=== PATIENT | male | born 1950 | race Caucasian/White ===

== ENCOUNTER 2018-02-10 20:29 | Observation (INO) | payer MEDICARE ==
--- NOTE | 2018-02-10 21:07 | ED ---
General Adult HPI - General Chief complaint: Abdominal Pain Stated complaint: kidney stones Time Seen by Provider: 02/10/18 20:39 Source: patient, RN notes reviewed, old records reviewed (Chart reviewed from [facility]) Mode of arrival: ambulatory Limitations: no limitations - History of Present Illness Initial comments: Patient is a pleasant 67-year-old male presenting to the emergency department with left-sided flank pain. Onset of symptoms was 2 days ago. Symptoms have been waxing and waning. Patient has vomited multiple times, limited oral intake. Discomfort is mild at this time secondary to pain medication prior to transfer. Patient states nausea is also mild at this time secondary to anti- emetics. Patient does have a history of similar symptoms previously associated with kidney stones. Patient was seen at [facility] and transferred here secondary to urology evaluation. Patient had abnormal CT and creatinine. - Related Data Allergies Allergy/AdvReac Type Severity Reaction Status Date / Time No Known Allergies Allergy Verified 02/10/18 20:35 Review of Systems ROS Statement: Those systems with pertinent positive or pertinent negative responses have been documented in the HPI. ROS Other: All systems not noted in ROS Statement are negative. Constitutional: Denies: fever Eyes: Denies: eye pain ENT: Denies: throat pain Respiratory: Denies: cough Cardiovascular: Denies: chest pain Endocrine: Denies: fatigue Gastrointestinal: Reports: abdominal pain, nausea, vomiting. Denies: diarrhea, constipation Genitourinary: Denies: dysuria Musculoskeletal: Denies: back pain Skin: Denies: rash Neurological: Denies: weakness Past Medical History Past Medical History: Diabetes Mellitus, Hypertension Additional Past Medical History / Comment(s): kidney stones, gout History of Any Multi-Drug Resistant Organisms: None Reported Additional Past Surgical History / Comment(s): lithotripsy Past Psychological History: No Psychological Hx Reported Smoking Status: Never smoker Past Alcohol Use History: None Reported Past Drug Use History: None Reported General Exam Limitations: no limitations General appearance: alert, in no apparent distress Head exam: Present: atraumatic Eye exam: Present: normal appearance, PERRL ENT exam: Present: normal oropharynx Neck exam: Present: normal inspection Respiratory exam: Present: normal lung sounds bilaterally Cardiovascular Exam: Present: regular rate, normal rhythm Expanded Peripheral pulses: 2+: Posterior Tibialis (R), Posterior Tibialis (L) GI/Abdominal exam: Present: soft, normal bowel sounds. Absent: distended, tenderness Extremities exam: Present: normal inspection. Absent: pedal edema, calf tenderness Back exam: Present: normal inspection Neurological exam: Present: alert Psychiatric exam: Present: normal affect, normal mood Skin exam: Present: normal color Course Vital Signs 02/10/18 20:30 Temperature 98.7 F Pulse Rate 68 Respiratory 18 Rate Blood Pressure 152/85 O2 Sat by Pulse 97 Oximetry Medical Decision Making - Medical Decision Making Case was discussed with Dr. Rivera, who will admit for Dr. Anaya. Patient updated. Disposition Clinical Impression: Ureterolithiasis, Acute renal failure (ARF) Disposition: ADMITTED IP TO THIS HOSP Condition: Serious Referrals: Ramírez Rivera DO [Primary Care Provider] - 1-2 days Decision Time: 21:07
[2018-02-10] MEDS ORDERED: ONDANSETRON 4 MG/2 ML VIAL IVP PRN (21:14)
[2018-02-10] MEDS ORDERED: MORPHINE SULFATE 4 MG/ML SYRINGE IV PRN (21:14)
[2018-02-10] MEDS ORDERED: NALOXONE 0.4 MG/ML 1 ML VIAL IV PRN (21:14)
[2018-02-10] MEDS: SODIUM CHLORIDE 0.9% 1,000 ML IV SCH (21:26)
[2018-02-10 22:39] VITALS: BMI 29.4
--- NOTE | 2018-02-11 07:46 | P.GSHP ---
History of Present Illness H&P Date: 02/11/18 Chief Complaint: Bilateral ureteral calculi and acute renal failure The patient is a 67-year-old male with a history of urolithiasis who developed pain in his left flank one or 2 days ago. The pain became increasingly severe and was associated with nausea and vomiting on 02/10. He went to the [facility] emergency room for evaluation. He was noted to have a BUN of 38 and a creatinine of 2.32. computed tomography scan of the abdomen and pelvis without IV contrast identified moderate right and mild to moderate left hydronephrosis secondary to bilateral ureteral calculi. The patient was transferred from [facility] to this hospital for further evaluation. Since he was admitted his pain has improved and he last required morphine 7 or 8 hours ago. He no longer has vomiting. He denies any fever or chills. He has noted no gross hematuria or dysuria. He says that he feels that he's been voiding less frequently recently although he says he usually only voids every 4-5 hours during the day normally. He has no nocturia. The patient has a history of urolithiasis and says that he underwent 2 unsuccessful ESWL procedures on his right kidney or ureter approximately 5 years ago. He was eventually treated with right ureteroscopy with lithotripsy. He has a history of gout and is currently on allopurinol but it's unclear whether his calculi were composed of uric acid. He has no history of recurrent urinary tract infection. - Constitutional Constitutional: Reports poor appetite, Denies chills, Denies fever - Cardiovascular Cardiovascular: Denies chest pain, Denies leg edema, Denies palpitations, Denies shortness of breath - Respiratory Respiratory: Denies dyspnea, Denies pain on inspiration, Denies wheezing - Gastrointestinal Gastrointestinal: Reports nausea, Reports vomiting, Denies abdominal pain, Denies change in bowel habits - Genitourinary (Female) Genitourinary: Denies as per HPI - Genitourinary (Male) Genitourinary: Reports as per HPI - Integumentary Integumentary: Reports lesions (chronic psoriasis) Past Medical History Past Medical History: Diabetes Mellitus, Hypertension Additional Past Medical History / Comment(s): kidney stones, gout History of Any Multi-Drug Resistant Organisms: None Reported Additional Past Surgical History / Comment(s): ureteroscopy with lithotripsy- right and two unsuccessful ESWL procedures-right Past Psychological History: No Psychological Hx Reported Smoking Status: Never smoker Past Alcohol Use History: None Reported Past Drug Use History: None Reported Medications and Allergies Home Medications and Allergies Comment(s): metformin, metoprolol and allopurinol Allergies Allergy/AdvReac Type Severity Reaction Status Date / Time No Known Allergies Allergy Verified 02/10/18 20:35 Surgical - Exam Vital Signs Temp Pulse Resp BP Pulse Ox 98.7 F 68 18 152/85 97 02/10/18 20:30 02/10/18 20:30 02/10/18 20:30 02/10/18 20:30 02/10/18 20:30 - General well developed, no distress, obese - Neck no masses, no lymphadectomy - Respiratory normal expansion, clear to percussion, clear to auscultation - Cardiovascular Rhythm: regular Abnormal Heart Sounds: no systolic murmur - Abdomen Abdomen: soft, non tender, no organomegaly - Genitourinary normal penis with no external lesions - Integumentary other (scaly, erythematous lesions on back and trunk consistent with psoriasis) Assessment and Plan (1) Acute renal failure (ARF) Narrative/Plan: The patient's acute renal failure is most likely related to bilateral hydronephrosis from his obstructive ureteral calculi. I do not know what his baseline renal function is however. Current Visit: Yes Status: Acute Code(s): N17.9 - ACUTE KIDNEY FAILURE, UNSPECIFIED SNOMED Code(s): 51455867 (2) Ureterolithiasis Narrative/Plan: The patient has bilateral ureteral obstruction secondary to what appears to be a group of impacted calculi in the mid right ureter measuring approximately 2 cm in length and at least 12-13 mm in diameter. Multiple nonobstructive right renal calculi are present including a 1.3 cm group of calculi in the lower pole of the kidney and 24 mm calculi in the upper pole of the kidney. His left ureter is partially obstructed from what appears to be at least 2 calculi impacted in the mid ureter largest of which measures 7 mm in diameter. In total length the calculi in the left ureter is approximately [address] Balderrama has treated the patient in the past and we will probably place place double-J catheters bilaterally later today for palliation of the patient's acute renal failure. Current Visit: Yes Status: Acute Code(s): N20.1 - CALCULUS OF URETER SNOMED Code(s): 61450719 (3) Benign hypertension Current Visit: Yes Status: Acute Code(s): I10 - ESSENTIAL (PRIMARY) HYPERTENSION SNOMED Code(s): 21598988 (4) Type 2 diabetes mellitus Current Visit: Yes Status: Acute Code(s): E11.9 - TYPE 2 DIABETES MELLITUS WITHOUT COMPLICATIONS SNOMED Code(s): 03452729
[2018-02-11 08:47] LABS: Basophils % (A) 0 %; Eosinophils # (A) 0.1 k/uL (0-0.7); Eosinophils % (A) 1 %; HCT 39.2 % (39.0-53.0); Lymphocytes # (A) 1.3 k/uL (1.0-4.8); Lymphocytes % (A) 13 %; MCH 31.4 pg (25.0-35.0); MCV 94.9 fL (80.0-100.0); Mean Platelet Volume 7.2; Monocytes # (A) 0.5 k/uL (0-1.0); Monocytes % (A) 5 %; Neutrophils # (A) 7.9 k/uL (1.3-7.7); Neutrophils % (A) 80 %; Platelet Count 203 k/uL (150-450); RBC 4.13 m/uL (4.30-5.90); RDW 13.1 % (11.5-15.5); WBC 9.9 k/uL (3.8-10.6)
[2018-02-11 08:50] LABS: INR 1.1 (<1.2); Prothrombin Time 10.5 sec (9.0-12.0)
[2018-02-11 08:57] LABS: Albumin 3.7 g/dL (3.5-5.0); Calcium 9.3 mg/dL (8.4-10.2); Potassium 4.4 mmol/L (3.5-5.1); Total Bilirubin 1.2 mg/dL (0.2-1.3); Total Protein 6.6 g/dL (6.3-8.2)
--- NOTE | 2018-02-11 09:37 | P.PN ---
Subjective The patient has bilateral large mid ureteral calculi. He has acute renal insufficiency secondary to this with bilateral hydronephrosis. His situation is quite complicated. I will try to place bilateral double-J catheters this afternoon relieve his renal insufficiency, dilated ureters so that future treatment can be performed. He understands he may need nephrostomy or bilateral nephrostomy tubes. We also discussed open surgery. Objective - Vital Signs Vital signs: Vital Signs Temp 98.4 F 02/11/18 07:00 Pulse 76 02/11/18 07:00 Resp 16 02/11/18 07:00 BP 120/75 02/11/18 07:00 Pulse Ox 96 02/11/18 07:00 Intake & Output 02/10/18 02/11/18 02/11/18 18:59 06:59 18:59 Output Total 600 Balance -600 Weight 95.708 kg Output: Urine 600 Other: # Voids 0 - Labs CBC & Chem 7: 02/11/18 08:16 02/11/18 08:16 Labs: Abnormal Lab Results - Last 24 Hours (Table) 02/11/18 02/11/18 Range/Units 08:16 08:16 RBC 4.13 L (4.30-5.90) m/uL Neutrophils # 7.9 H (1.3-7.7) k/uL BUN 37 H (9-20) mg/dL Creatinine 2.70 H (0.66-1.25) mg/dL Glucose 130 H (74-99) mg/dL
[2018-02-11] MEDS: SODIUM CHLORIDE 0.9% 1,000 ML IV SCH ×2 (10:48→23:23)
[2018-02-11] MEDS ORDERED: IV FLUID CONTINUATION 1,000 ML IV ONE (13:34)
[2018-02-11] MEDS ORDERED: LACTATED RINGERS 1,000 ML IV ONE (13:50)
[2018-02-11] MEDS ORDERED: ONDANSETRON 4 MG/2 ML VIAL IVP ONE (14:28)
[2018-02-11] MEDS ORDERED: DEXAMETHASONE SOD PHOSPHATE 10 MG/ML 1 ML VIAL IV ONE (14:30)
[2018-02-11] MEDS ORDERED: fentaNYL (PF) 50 MCG/ML 2 ML AMP ONE (14:45)
[2018-02-11] MEDS ORDERED: PROPOFOL 10 MG/ML 20 ML VIAL IV ONE (14:45)
[2018-02-11] MEDS ORDERED: MIDAZOLAM 2 MG/2 ML VIAL ONE (14:45)
[2018-02-11] MEDS ORDERED: LIDOCAINE 1% INJ 10MG/ML (20 ML MDV) ONE (14:45)
[2018-02-11] MEDS ORDERED: HYDROcodone/APAP 5-325MG 1 EACH TAB PO PRN (15:30)
--- NOTE | 2018-02-11 15:36 | P.OP ---
Date of Procedure: 02/11/18 Preoperative Diagnosis: Bilateral ureteral obstruction secondary to bilateral ureteral calculi, large, acute renal failure Postoperative Diagnosis: Same Procedure(s) Performed: Cystoscopy, placement of bilateral double-J catheters, 6 x 26 cm Anesthesia: TAHIR Surgeon: Wilder Balderrama Pathology: none sent Condition: stable Disposition: PACU Indications for Procedure: The patient is a 67-year-old gentleman with a history of kidney stones. He has been seen for several years. He presented to the [facility] emergency room in acute left ureteral colic. Computed tomography scan showed large volume ureteral stones on the right with chronic hydroureteronephrosis smaller volumes stones on the left with hydroureteronephrosis creatinine of 2.45. He is transferred to [facility] for further evaluation. He was admitted to the hospital. I reviewed the computed tomography scan and felt the best treatment of choice would be to relieve the renal failure possible stents and then secondarily go after the stones either shockwave lithotripsy, ureteroscopy or both. We did also discussed open surgery however the feeling is that the best treatment of choice of the endoscopic. Description of Procedure: The patient is brought to the operating suite. He was given a successful general endotracheal anesthesia. He's placed lithotomy position with sterile prep and drape. Cystoscopy Foroblique lens and 22-Burkinan sheath identifies a completely obstructing prostate with lateral lobes. The bladder guerra heavily trabeculated. The left ureteral orifice is identified and no 35 wires passed through it fortunately easily by the stones up in the renal pelvis. Over the wires and passed a 6 x 26 double-J catheter that drains a voluminous amount of bloody urine. I then do the same thing on the right side. I passed the wire to the stone the largest internal distal stone appears at least a centimeter and half if not 2 cm. With some difficulty I am able to manipulate by the stone up into the renal pelvis. I then over the wire pass a 6 x 26 double-J catheter that coils in the renal pelvis and in the bladder. Again a voluminous amount of bloody urine is drained. The bladder strain the patient awake and returned recovery in good condition. Tell procedure well. He'll be kept in the hospital overnight and make sure he doesn't have any problems. If he does well be discharged home in the morning. At a later date he will need a secondary ureteroscopy with laser lithotripsy to the stones due to the extremely large stone on the right arm a stage this.
--- NOTE | 2018-02-11 15:57 | FL ---
Fluoroscopy HISTORY: Ureteral stent placement 24 seconds fluoroscopy time supplied to the referring clinician. 1 intraoperative C-arm image docume nts the procedure. See dictated report from urology.
[2018-02-11] MEDS ORDERED: ALLOPURINOL 300 MG TAB PO SCH (21:00)
[2018-02-11] MEDS ORDERED: ASPIRIN 81 MG PO SCH (21:00)
[2018-02-11] MEDS: metFORMIN 500 MG TAB PO SCH (21:35)
[2018-02-11] MEDS: METOPROLOL TARTRATE 25 MG TAB PO SCH (21:35)
--- NOTE | 2018-02-12 06:42 | P.DS ---
Providers Date of admission: 02/10/18 21:07 Attending physician: Abdoul Rivera Primary care physician: Ramírez Rivera DO Hospital Course: The patient was admitted to the hospital 02/10/2018 with bilateral ureteral stones. I placed bilateral double-J catheters yesterday to relieve his acute renal failure which was result from the obstruction. He feels well this morning the urine is clearing. He is voiding without difficulty. He'll be discharged home. He'll be seen in the office approximately one week. We'll set up appropriate surgery to remove the stones which could include ureteroscopy with laser lithotripsy, shockwave therapy, open surgery. So all be discussed with the patient. Condition is good. Patient Condition at Discharge: Good Plan - Discharge Summary Discharge Rx Participant: No New Discharge Prescriptions: No Action metFORMIN HCL 1,000 mg PO BID Metoprolol Tartrate [Lopressor] 25 mg PO BID Cholecalciferol [Vitamin D3] 1,000 unit PO DAILY Aspirin EC [Ecotrin Low Dose] 81 mg PO HS Allopurinol [Zyloprim] 300 mg PO HS Discharge Medication List Allopurinol [Zyloprim] 300 mg PO HS 02/11/18 [History] Aspirin EC [Ecotrin Low Dose] 81 mg PO HS 02/11/18 [History] Cholecalciferol [Vitamin D3] 1,000 unit PO DAILY 02/11/18 [History] Metoprolol Tartrate [Lopressor] 25 mg PO BID 02/11/18 [History] metFORMIN HCL 1,000 mg PO BID 02/11/18 [History] Follow up Appointment(s)/Referral(s): Ramírez Rivera DO [Primary Care Provider] - 1-2 days Wilder Balderrama MD [STAFF PHYSICIAN] - 1 Week Discharge Disposition: HOME SELF-CARE
[2018-02-12 07:40] VITALS: BP 137/81; PULSE 81; RESP 20; TEMP 97.9
[2018-02-12] MEDS: metFORMIN 500 MG TAB PO SCH (08:04)
[2018-02-12] MEDS: METOPROLOL TARTRATE 25 MG TAB PO SCH (08:05)
== END 2018-02-12 09:44 | disposition home or self-care (01) ==
LOC: EC 20:29 → 4MS4W 21:07
PROVIDERS: ADMIT Urology; ATTEND Urology
DX: N17.9 Acute kidney failure, unspecified (principal); N13.2 Hydronephrosis with renal and ureteral calculous obstruction; M10.9 Gout, unspecified; I10 Essential (primary) hypertension; E11.9 Type 2 diabetes mellitus without complications; Z87.442 Personal history of urinary calculi; Z79.84 Long term (current) use of oral hypoglycemic drugs; Z79.82 Long term (current) use of aspirin; Z79.899 Other long term (current) drug therapy
CPT/HCPCS: 52332; 99285 ×2; 96361 ×3; 96374; 80053; 85025; 85610; G0378 ×3; C2625; C1769; J2250; J2270; J1100; J2405; J2001; J3010; J2704

== ENCOUNTER 2020-03-05 18:01 | Observation (INO) | payer MEDICARE ==
[2020-03-05] MEDS ORDERED: SODIUM CHLORIDE 0.9% 1,000 ML IV STA (18:41)
[2020-03-05] MEDS ORDERED: ONDANSETRON 4 MG/2 ML VIAL IVP STA (18:41)
[2020-03-05] MEDS ORDERED: KETOROLAC 30 MG/ML 1 ML VIAL IVP STA (18:41)
--- NOTE | 2020-03-05 18:47 | ED ---
Abdominal Pain HPI <Dale Bull - Last Filed: 03/05/20 20:36> - General Source: patient Mode of arrival: ambulatory Limitations: no limitations <Deborah Burroughs - Last Filed: 03/05/20 20:40> - General Chief Complaint: Abdominal Pain Stated Complaint: kidney stones Time Seen by Provider: 03/05/20 18:30 - History of Present Illness Initial Comments: Patient is a 69-year-old male presenting to the emergency Department with complaints of left-sided abdominal pain 2 days. Patient states he went to [facility] 2 days ago with a sudden onset of left flank pain, was diagnosed with a kidney stone, was given pain medication, Keflex, Zofran and discharged home and recommended follow-up with Dr. Balderrama. Patient states he is awaiting a callback from Dr. Balderrama's office. He presents today with increase in pain, states his pain medicine is not working. He denies any fever, chills, hematuria. He denies any chest pain or shortness of breath. He has no further complaints at this time. Upon arrival to the ER his vitals are stable. (Deborah Burroughs) - Related Data Home Medications Medication Instructions Recorded Confirmed Allopurinol [Zyloprim] 300 mg PO HS 02/11/18 02/11/18 Aspirin EC [Ecotrin Low Dose] 81 mg PO HS 02/11/18 02/11/18 Cholecalciferol [Vitamin D3] 1,000 unit PO DAILY 02/11/18 02/11/18 Metoprolol Tartrate [Lopressor] 25 mg PO BID 02/11/18 02/11/18 metFORMIN HCL 1,000 mg PO BID 02/11/18 02/11/18 Allergies Allergy/AdvReac Type Severity Reaction Status Date / Time No Known Allergies Allergy Verified 03/05/20 18:29 Review of Systems ROS Other: All systems not noted in ROS Statement are negative. <Dale Bull - Last Filed: 03/05/20 20:36> ROS Other: All systems not noted in ROS Statement are negative. <Deborah Burroughs - Last Filed: 03/05/20 20:40> ROS Statement: Those systems with pertinent positive or pertinent negative responses have been documented in the HPI. Past Medical History Past Medical History: Diabetes Mellitus, Hypertension Additional Past Medical History / Comment(s): kidney stones, gout History of Any Multi-Drug Resistant Organisms: None Reported Additional Past Surgical History / Comment(s): ureteroscopy with lithotripsy- right and two unsuccessful ESWL procedures-right Past Psychological History: No Psychological Hx Reported Smoking Status: Never smoker Past Alcohol Use History: None Reported Past Drug Use History: None Reported <Deborah Burroughs Jarocho - Last Filed: 03/05/20 20:40> General Exam Limitations: no limitations <Deborah Burroughs Jarocho - Last Filed: 03/05/20 20:40> - General Exam Comments Initial Comments: GENERAL: Well-appearing, well-nourished and in no acute distress. HEAD: Atraumatic, normocephalic. EYES: Pupils equal round and reactive to light, extraocular movements intact, sclera anicteric, conjunctiva are normal. ENT: TMs normal, nares patent, oropharynx clear without exudates. Moist mucous membranes. NECK: Normal range of motion, supple without lymphadenopathy or JVD. LUNGS: Breath sounds clear to auscultation bilaterally and equal. No wheezes rales or rhonchi. HEART: Regular rate and rhythm without murmurs, rubs or gallops. ABDOMEN: Tender to palpation of the left side of the abdomen. No other abdominal tenderness. Soft, normoactive bowel sounds. No guarding, no rebound. No masses appreciated. : Deferred EXTREMITIES: Normal range of motion, no pitting or edema. No clubbing or cyanosis. NEUROLOGICAL: Normal speech, normal gait. PSYCH: Normal mood, normal affect. SKIN: Warm, Dry, normal turgor, no rashes or lesions noted. (Deborah Burroughs) Course <Dale Bull - Last Filed: 03/05/20 20:36> Vital Signs 03/05/20 18:26 Temperature 98.1 F Pulse Rate 54 L Respiratory 18 Rate Blood Pressure 177/93 O2 Sat by Pulse 98 Oximetry - Reevaluation(s) Reevaluation #1: 03/05/20 20:36 PA supervision: I personally evaluate this case patient did present flank pain he has evidence of kidney stone with infectious etiology. Patient will be admitted I do agree with the assessment and plan (Dale Bull) Medical Decision Making - Lab Data Result diagrams: 03/05/20 18:55 03/05/20 18:55 <Dale Bull - Last Filed: 03/05/20 20:36> - Lab Data Result diagrams: 03/05/20 18:55 03/05/20 18:55 <Deborah Burroughs - Last Filed: 03/05/20 20:40> - Medical Decision Making Patient states he [id number] male here for a left-sided kidney stone. He was seen at [facility] 2 days ago, given pain medicine, Zofran, Keflex and was told to follow up Dr. Anaya. No callback. Patient presents today with continued pain. (Deborah Burroughs) - Lab Data Lab Results 03/05/20 03/05/20 03/05/20 Range/Units 18:55 18:55 18:55 WBC 10.9 H (3.8-10.6) k/uL RBC 4.57 (4.30-5.90) m/uL Hgb 14.0 (13.0-17.5) gm/dL Hct 44.0 (39.0-53.0) % MCV 96.5 (80.0-100.0) fL MCH 30.7 (25.0-35.0) pg MCHC 31.8 (31.0-37.0) g/dL RDW 13.0 (11.5-15.5) % Plt Count 220 (150-450) k/uL Neutrophils % 87 % Lymphocytes % 7 % Monocytes % 4 % Eosinophils % 1 % Basophils % 0 % Neutrophils # 9.5 H (1.3-7.7) k/uL Lymphocytes # 0.8 L (1.0-4.8) k/uL Monocytes # 0.4 (0-1.0) k/uL Eosinophils # 0.1 (0-0.7) k/uL Basophils # 0.0 (0-0.2) k/uL Sodium 136 L (137-145) mmol/L Potassium 4.7 (3.5-5.1) mmol/L Chloride 101 (98-107) mmol/L Carbon Dioxide 22 (22-30) mmol/L Anion Gap 13 mmol/L BUN 33 H (9-20) mg/dL Creatinine 2.28 H (0.66-1.25) mg/dL Est GFR (CKD-EPI)AfAm 33 (>60 ml/min/1.73 sqM) Est GFR (CKD-EPI)NonAf 28 (>60 ml/min/1.73 sqM) Glucose 180 H (74-99) mg/dL Calcium 9.6 (8.4-10.2) mg/dL Total Bilirubin 1.0 (0.2-1.3) mg/dL AST 24 (17-59) U/L ALT 14 (4-49) U/L Alkaline Phosphatase 53 (38-126) U/L Total Protein 8.2 (6.3-8.2) g/dL Albumin 4.6 (3.5-5.0) g/dL Urine Color Yellow Urine Appearance Cloudy (Clear) Urine pH 5.0 (5.0-8.0) Ur Specific [place] 1.017 (1.001-1.035) Urine Protein Trace H (Negative) Urine Glucose (UA) Negative (Negative) Urine Ketones 1+ H (Negative) Urine Blood Moderate H (Negative) Urine Nitrite Negative (Negative) Urine Bilirubin Negative (Negative) Urine Urobilinogen <2.0 (<2.0) mg/dL Ur Leukocyte Esterase Moderate H (Negative) Urine RBC 141 H (0-5) /hpf Urine WBC 30 H (0-5) /hpf Ur Squamous Epith Cells 1 (0-4) /hpf Urine Bacteria Rare H (None) /hpf Urine Mucus Rare H (None) /hpf Disposition <Dale Bull - Last Filed: 03/05/20 20:36> Decision Date: 03/05/20 Decision Time: 20:40 <Deborah Burroughs - Last Filed: 03/05/20 20:40> Clinical Impression: Acute kidney injury, Left ureteral stone Disposition: ADMITTED IP TO THIS HOSP Condition: Stable Referrals: Silvia Durbin DO [Primary Care Provider] - 1-2 days
[2020-03-05 19:12] LABS: Basophils % (A) 0 %; Eosinophils # (A) 0.1 k/uL (0-0.7); Eosinophils % (A) 1 %; Lymphocytes # (A) 0.8 k/uL (1.0-4.8); Lymphocytes % (A) 7 %; MCH 30.7 pg (25.0-35.0); MCHC 31.8 g/dL (31.0-37.0); MCV 96.5 fL (80.0-100.0); Mean Platelet Volume 7.4; Monocytes # (A) 0.4 k/uL (0-1.0); Monocytes % (A) 4 %; Neutrophils # (A) 9.5 k/uL (1.3-7.7); Neutrophils % (A) 87 %; Platelet Count 220 k/uL (150-450); RBC 4.57 m/uL (4.30-5.90); WBC 10.9 k/uL (3.8-10.6)
[2020-03-05 19:19] LABS: Albumin 4.6 g/dL (3.5-5.0); Calcium 9.6 mg/dL (8.4-10.2); Potassium 4.7 mmol/L (3.5-5.1); Total Protein 8.2 g/dL (6.3-8.2)
[2020-03-05 19:30] LABS: Appearance,Urine Cloudy (Clear); Bacteria,Urine Rare /hpf; Bilirubin,Urine Negative (Negative); Blood,Urine Moderate (Negative); Color,Urine Yellow; Glucose,Urine (UA) Negative (Negative); Ketones,Urine 1+ (Negative); Leukocyte Esterase,Urine Moderate (Negative); Mucus,Urine Rare /hpf; Nitrite,Urine Negative (Negative); Protein,Urine Trace (Negative); RBC,Urine 141 /hpf (0-5); Specific Gravity,Urine 1.017 (1.001-1.035); Squamous Epithelial Cell,Urine 1 /hpf (0-4); Urobilinogen,Urine <2.0 mg/dL (<2.0); WBC,Urine 30 /hpf (0-5)
--- NOTE | 2020-03-05 20:10 | XR ---
EXAMINATION TYPE: XR KUB DATE OF EXAM: 03/05/2020 COMPARISON: 11/13/2010 HISTORY: Lithotripsy one week ago. Pain. TECHNIQUE: 2 views upright FINDINGS: There is no sign of intestinal obstruction or pneumoperitoneum. Fecal pattern is normal. Th ere is some calcifications over the lower pole right kidney. I see no calculi over the left kidney. T here is no evidence of a mass. Fecal pattern is normal. Lung bases are clear. IMPRESSION: Right renal calculi unchanged. Nonacute abdomen.
[2020-03-05] MEDS ORDERED: KETOROLAC 30 MG/ML 1 ML VIAL IVP PRN (20:36)
[2020-03-05] MEDS ORDERED: NALOXONE 0.4 MG/ML 1 ML VIAL IV PRN (20:36)
[2020-03-05] MEDS ORDERED: IBUPROFEN 400 MG TAB PO PRN (20:36)
[2020-03-05] MEDS ORDERED: ONDANSETRON 4 MG/2 ML VIAL IVP PRN (20:36)
[2020-03-05] MEDS ORDERED: traMADol 50 MG TAB PO PRN (22:58)
[2020-03-05] MEDS: SODIUM CHLORIDE 0.9% 1,000 ML IV SCH (23:46)
[2020-03-06] MEDS: MORPHINE SULFATE 4 MG/ML SYRINGE IV PRN ×3 (03:12→17:48)
[2020-03-06 08:17] LABS: Potassium 5.5 mmol/L (3.5-5.1)
[2020-03-06] MEDS: metFORMIN 500 MG TAB PO SCH ×2 (09:18→17:42)
[2020-03-06] MEDS: METOPROLOL TARTRATE 25 MG TAB PO SCH ×2 (09:22→20:34)
[2020-03-06] MEDS: SODIUM CHLORIDE 0.9% 1,000 ML IV SCH (11:03)
[2020-03-06 11:36] LABS: Glucose,Whole Blood 114 mg/dL (75-99)
--- NOTE | 2020-03-06 13:23 | P.GSHP ---
History of Present Illness H&P Date: 03/06/20 Chief Complaint: Left ureteral calculi Mr Sosa is a 69-year-old male with left sided flank pain. He was recently presented to [facility] with left flank pain, He underwent a CT which showed a 5 mm left ureteral stone. He was discharged home from the ED, he indicated his pain has gotten worse and presented to the ED with flank pain. Lab work in the ED showed creat of 2.2. He indicated his pain is associated with nausea/vomiting. denies any fever/chills. denies any dysuria. He indicated this am his pain has resolved. He has hx of recurrent stones, he indicated he passed stone spontaneously in the past. His creat improved to 1.7 with hydration - Constitutional Constitutional: Denies chills, Denies fever - Cardiovascular Cardiovascular: Denies chest pain, Denies dyspnea on exertion - Respiratory Respiratory: Denies cough, Denies cough with sputum, Denies dyspnea - Gastrointestinal Gastrointestinal: Reports abdominal pain, Reports nausea, Reports vomiting - Genitourinary (Female) Genitourinary: Reports flank pain, Reports hematuria, Reports kidney stones, Denies dysuria - Genitourinary (Male) Genitourinary: Reports flank pain, Reports hematuria, Reports kidney stones, Denies incontinence, Denies urinary retention - Musculoskeletal Musculoskeletal: Denies myalgias Past Medical History Past Medical History: Diabetes Mellitus, Hypertension Additional Past Medical History / Comment(s): kidney stones, gout History of Any Multi-Drug Resistant Organisms: None Reported Additional Past Surgical History / Comment(s): ureteroscopy with lithotripsy- right and two unsuccessful ESWL procedures-right Past Psychological History: No Psychological Hx Reported Smoking Status: Never smoker Past Alcohol Use History: None Reported Past Drug Use History: None Reported Medications and Allergies Home Medications Medication Instructions Recorded Confirmed Type Allopurinol [Zyloprim] 300 mg PO HS 02/11/18 03/05/20 History Aspirin EC [Ecotrin Low Dose] 81 mg PO HS 02/11/18 03/05/20 History Cholecalciferol [Vitamin D3] 2,000 unit PO Q48H 02/11/18 03/05/20 History Metoprolol Tartrate [Lopressor] 25 mg PO BID 02/11/18 03/05/20 History RX: metFORMIN HCL 1,000 mg PO BID 02/11/18 03/05/20 History Co Q-10 (Unknown Strength) 1 tab PO HS 03/05/20 03/05/20 History RX: Tamsulosin [Flomax] 0.4 mg PO DAILY #30 cap 03/06/20 Rx Allergies Allergy/AdvReac Type Severity Reaction Status Date / Time No Known Allergies Allergy Verified 03/05/20 21:13 Surgical - Exam Vital Signs Temp Pulse Resp BP Pulse Ox 98.1 F 54 L 18 177/93 98 03/05/20 18:26 03/05/20 18:26 03/05/20 18:26 03/05/20 18:26 03/05/20 18:26 - General well developed, well nourished, no distress, no pain - Eyes PERRL, normal ocular movement - Respiratory normal expansion, normal respiratory effort - Abdomen Abdomen: soft, non tender - Psychiatric oriented to time, oriented to person, oriented to place, speech is normal Results - Labs 03/05/20 18:55 03/06/20 07:01 Abnormal Lab Results - Last 24 Hours (Table) 03/05/20 03/05/20 03/05/20 Range/Units 18:55 18:55 18:55 WBC 10.9 H (3.8-10.6) k/uL Neutrophils # 9.5 H (1.3-7.7) k/uL Lymphocytes # 0.8 L (1.0-4.8) k/uL Sodium 136 L (137-145) mmol/L Potassium (3.5-5.1) mmol/L Chloride (98-107) mmol/L BUN 33 H (9-20) mg/dL Creatinine 2.28 H (0.66-1.25) mg/dL Glucose 180 H (74-99) mg/dL POC Glucose (mg/dL) (75-99) mg/dL Urine Protein Trace H (Negative) Urine Ketones 1+ H (Negative) Urine Blood Moderate H (Negative) Ur Leukocyte Esterase Moderate H (Negative) Urine RBC 141 H (0-5) /hpf Urine WBC 30 H (0-5) /hpf Urine Bacteria Rare H (None) /hpf Urine Mucus Rare H (None) /hpf 03/06/20 03/06/20 Range/Units 07:01 11:35 WBC (3.8-10.6) k/uL Neutrophils # (1.3-7.7) k/uL Lymphocytes # (1.0-4.8) k/uL Sodium (137-145) mmol/L Potassium 5.5 H (3.5-5.1) mmol/L Chloride 108 H (98-107) mmol/L BUN 30 H (9-20) mg/dL Creatinine 1.71 H (0.66-1.25) mg/dL Glucose 108 H (74-99) mg/dL POC Glucose (mg/dL) 114 H (75-99) mg/dL Urine Protein (Negative) Urine Ketones (Negative) Urine Blood (Negative) Ur Leukocyte Esterase (Negative) Urine RBC (0-5) /hpf Urine WBC (0-5) /hpf Urine Bacteria (None) /hpf Urine Mucus (None) /hpf Microbiology - Last 24 Hours (Table) 03/06/20 02:55 Urine Culture - Preliminary Urine,Voided 03/05/20 18:55 Urine Culture - Preliminary Urine,Voided Diabetes panel 03/05/20 03/06/20 Range/Units 18:55 07:01 Sodium 136 L 138 (137-145) mmol/L Potassium 4.7 5.5 H (3.5-5.1) mmol/L Chloride 101 108 H (98-107) mmol/L Carbon Dioxide 22 25 (22-30) mmol/L BUN 33 H 30 H (9-20) mg/dL Creatinine 2.28 H 1.71 H (0.66-1.25) mg/dL Glucose 180 H 108 H (74-99) mg/dL Calcium 9.6 9.0 (8.4-10.2) mg/dL AST 24 (17-59) U/L ALT 14 (4-49) U/L Alkaline Phosphatase 53 (38-126) U/L Total Protein 8.2 (6.3-8.2) g/dL Albumin 4.6 (3.5-5.0) g/dL Calcium panel 03/05/20 03/06/20 Range/Units 18:55 07:01 Calcium 9.6 9.0 (8.4-10.2) mg/dL Albumin 4.6 (3.5-5.0) g/dL Pituitary panel 03/05/20 03/06/20 Range/Units 18:55 07:01 Sodium 136 L 138 (137-145) mmol/L Potassium 4.7 5.5 H (3.5-5.1) mmol/L Chloride 101 108 H (98-107) mmol/L Carbon Dioxide 22 25 (22-30) mmol/L BUN 33 H 30 H (9-20) mg/dL Creatinine 2.28 H 1.71 H (0.66-1.25) mg/dL Glucose 180 H 108 H (74-99) mg/dL Calcium 9.6 9.0 (8.4-10.2) mg/dL Adrenal panel 03/05/20 03/06/20 Range/Units 18:55 07:01 Sodium 136 L 138 (137-145) mmol/L Potassium 4.7 5.5 H (3.5-5.1) mmol/L Chloride 101 108 H (98-107) mmol/L Carbon Dioxide 22 25 (22-30) mmol/L BUN 33 H 30 H (9-20) mg/dL Creatinine 2.28 H 1.71 H (0.66-1.25) mg/dL Glucose 180 H 108 H (74-99) mg/dL Calcium 9.6 9.0 (8.4-10.2) mg/dL Total Bilirubin 1.0 (0.2-1.3) mg/dL AST 24 (17-59) U/L ALT 14 (4-49) U/L Alkaline Phosphatase 53 (38-126) U/L Total Protein 8.2 (6.3-8.2) g/dL Albumin 4.6 (3.5-5.0) g/dL Assessment and Plan Assessment: 69 yo male with 5 mm left sided ureteral stone. Admitted to hospital with ANDRES and creat elevation to 2.2. Creat trending down to 1.7 with hydration. He is asymptomatic this am. Hx of oxalate stone is the past, he indicated that he passed them spontaneously Plan: -Trial of diet, if tolerating diet discharge home later today, can f/u with Dr Balderrama in 1 weeks with KUB prior to f/u. If pain reoccurs will keep NPO past MN and plan on going to OR tomorrow for pimary ureteroscopy
[2020-03-06] MEDS: SENNOSIDES 8.6 MG TAB PO SCH (15:49)
[2020-03-06 17:12] LABS: Glucose,Whole Blood 163 mg/dL (75-99)
[2020-03-06 20:45] LABS: Glucose,Whole Blood 121 mg/dL (75-99)
[2020-03-06] MEDS ORDERED: ASPIRIN 81 MG PO SCH (21:00)
[2020-03-06] MEDS ORDERED: ALLOPURINOL 300 MG TAB PO SCH (21:00)
[2020-03-07 05:20] VITALS: BP 153/81; PULSE 72; RESP 16; TEMP 98.2
[2020-03-07] MEDS: SODIUM CHLORIDE 0.9% 1,000 ML IV SCH (06:05)
[2020-03-07 07:06] LABS: Glucose,Whole Blood 132 mg/dL (75-99)
[2020-03-07] MEDS: SENNOSIDES 8.6 MG TAB PO SCH (08:58)
[2020-03-07] MEDS: METOPROLOL TARTRATE 25 MG TAB PO SCH (08:58)
[2020-03-07] MEDS: metFORMIN 500 MG TAB PO SCH (08:58)
--- NOTE | 2020-03-07 09:33 | P.DS ---
Providers Date of admission: 03/05/20 20:36 Attending physician: Low Paulino MD Primary care physician: Silvia Durbin DO Hospital Course: Mr lacy is 69 yo male admitted to the hospital with 5mm left ureteral stone and ANDRES. His creat was elevated to 2.2. Denies. On admission his Creat improved to 1.7. He contiued to have intractable pain on 03/06, plan was to take patient to the OR on 03/07, but he passed his stone in the am. His stone was sent for chemical analysis. He was discharged home on 03/07. At time of discharge his pain was well controlled and he denies any nausea or vomiting Patient Condition at Discharge: Stable Plan - Discharge Summary Discharge Rx Participant: No New Discharge Prescriptions: New Tamsulosin [Flomax] 0.4 mg PO DAILY #30 cap No Action metFORMIN HCL 1,000 mg PO BID Metoprolol Tartrate [Lopressor] 25 mg PO BID Cholecalciferol [Vitamin D3] 2,000 unit PO Q48H Aspirin EC [Ecotrin Low Dose] 81 mg PO HS Allopurinol [Zyloprim] 300 mg PO HS Co Q-10 (Unknown Strength) 1 tab PO HS Discharge Medication List Allopurinol [Zyloprim] 300 mg PO HS 02/11/18 [History] Aspirin EC [Ecotrin Low Dose] 81 mg PO HS 02/11/18 [History] Cholecalciferol [Vitamin D3] 2,000 unit PO Q48H 02/11/18 [History] Metoprolol Tartrate [Lopressor] 25 mg PO BID 02/11/18 [History] metFORMIN HCL 1,000 mg PO BID 02/11/18 [History] Co Q-10 (Unknown Strength) 1 tab PO HS 03/05/20 [History] Tamsulosin [Flomax] 0.4 mg PO DAILY #30 cap 03/06/20 [Rx] Follow up Appointment(s)/Referral(s): Silvia Durbin DO [Primary Care Provider] - 1-2 days Wilder Balderrama MD [STAFF PHYSICIAN] - 1 Week Patient Instructions/Handouts: Hydrocodone/Acetaminophen (By mouth), Tamsulosin (By mouth), Ureteral Stones (DC) Activity/Diet/Wound Care/Special Instructions: diet as tolerated activity limited until seen by Dr. Bruner Disposition: HOME SELF-CARE
== END 2020-03-07 11:55 | disposition home or self-care (01) ==
LOC: EC 18:01 → 5NMEDONC 20:36
PROVIDERS: ADMIT Urology; ATTEND Urology
DX: N17.9 Acute kidney failure, unspecified (principal); N20.1 Calculus of ureter; E11.9 Type 2 diabetes mellitus without complications; I10 Essential (primary) hypertension; M10.9 Gout, unspecified; Z79.84 Long term (current) use of oral hypoglycemic drugs; Z79.82 Long term (current) use of aspirin; Z79.899 Other long term (current) drug therapy
CPT/HCPCS: 96376; 96361 ×3; 96365; 96366; 96375 ×2; 99285; 36415; 80053; 80048; 85025; 81001; 82365; 87086 ×2; 74018; G0378 ×3; U0003; J2270; J2405; J0696 ×2; J1885

== ENCOUNTER 2023-07-29 09:30 | Emergency (ER) | payer MEDICARE ==
[2023-07-29] MEDS ORDERED: KETOROLAC 15 MG/ML 1 ML VIAL IVP STA (09:45)
[2023-07-29] MEDS ORDERED: SODIUM CHLORIDE 0.9% 1,000 ML IV STA (09:45)
[2023-07-29] MEDS ORDERED: ONDANSETRON 4 MG/2 ML VIAL IVP STA (09:45)
[2023-07-29] MEDS ORDERED: HYDROmorphone 0.5 MG/0.5 ML SYRINGE IVP STA (09:46)
--- NOTE | 2023-07-29 09:49 | ED ---
General Adult HPI - General Chief complaint: Abdominal Pain Stated complaint: kidney stone Time Seen by Provider: 07/29/23 09:35 Source: patient, RN notes reviewed, old records reviewed Mode of arrival: ambulatory Limitations: no limitations - History of Present Illness Initial comments: This is a 72-year-old male who presents emergency Department with a past medical history significant for kidney stones patient patient comes in today stating that he thinks his medications down because she's got left-sided flank pain that goes into his CVA area of his back. Patient states started yesterday and has progressed today. Patient states this morning was significant. Patient denies any fever chills per patient denies any hematuria dysuria or urinary frequency. Patient denies any anterior abdominal pain. Patient denies any chest pain or difficulty breathing. - Related Data Home Medications Medication Instructions Recorded Confirmed Aspirin EC [Ecotrin Low Dose] 81 mg PO HS 02/11/18 03/05/20 Cholecalciferol [Vitamin D3] 2,000 unit PO Q48H 02/11/18 03/05/20 Metoprolol Tartrate [Lopressor] 25 mg PO BID 02/11/18 03/05/20 allopurinoL [Zyloprim] 300 mg PO HS 02/11/18 03/05/20 metFORMIN HCL [Glucophage] 1,000 mg PO BID 02/11/18 03/05/20 Co Q-10 (Unknown Strength) 1 tab PO HS 03/05/20 03/05/20 Previous Rx's Medication Instructions Recorded Tamsulosin [Flomax] 0.4 mg PO DAILY #30 cap 03/06/20 Ketorolac [Toradol] 10 mg PO Q6HR #15 tab 07/29/23 Ondansetron [Zofran] 4 mg PO Q8HR PRN #10 tab 07/29/23 Tamsulosin [Flomax] 0.4 mg PO DAILY #10 cap 07/29/23 Allergies Allergy/AdvReac Type Severity Reaction Status Date / Time No Known Allergies Allergy Verified 07/29/23 09:37 Review of Systems ROS Statement: Those systems with pertinent positive or pertinent negative responses have been documented in the HPI. ROS Other: All systems not noted in ROS Statement are negative. Past Medical History Past Medical History: Diabetes Mellitus, Hypertension Additional Past Medical History / Comment(s): kidney stones, gout History of Any Multi-Drug Resistant Organisms: None Reported Additional Past Surgical History / Comment(s): ureteroscopy with lithotripsy- right and two unsuccessful ESWL procedures-right Past Psychological History: No Psychological Hx Reported Smoking Status: Never smoker Past Alcohol Use History: None Reported Past Drug Use History: None Reported General Exam - General Exam Comments Initial Comments: GENERAL: Patient is well-developed and well-nourished. Patient is nontoxic and well- hydrated and is in mild distress. ENT: Neck is soft and supple. No significant lymphadenopathy is noted. Oropharynx is clear. Moist mucous membranes. Neck has full range of motion without eliciting any pain. EYES: The sclera were anicteric and conjunctiva were pink and moist. Extraocular movements were intact and pupils were equal round and reactive to light. Eyelids were unremarkable. PULMONARY: Unlabored respirations. Good breath sounds bilaterally. No audible rales rhonchi or wheezing was noted. CARDIOVASCULAR: There is a regular rate and rhythm without any murmurs gallops or rubs. ABDOMEN: Soft and nontender with normal bowel sounds. SKIN: Skin is clear with no lesions or rashes and otherwise unremarkable. NEUROLOGIC: Patient is alert and oriented x3. Cranial nerves II through XII are grossly intact. Motor and sensory are also intact. Normal speech, volume and content. Symmetrical smile. MUSCULOSKELETAL: Normal extremities with adequate strength and full range of motion. No CVA tenderness LYMPHATICS: No significant lymphadenopathy is noted PSYCHIATRIC: Normal psychiatric evaluation. Limitations: no limitations Course Vital Signs 07/29/23 07/29/23 09:35 10:08 Temperature 98.1 F Pulse Rate 65 72 Respiratory 20 18 Rate Blood Pressure 164/90 157/88 O2 Sat by Pulse 99 98 Oximetry Medical Decision Making - Medical Decision Making Was pt. sent in by a medical professional or institution (, PA, STORAGE BRINE WORKER, urgent care, hospital, or alf...) When possible be specific @ -No Did you speak to anyone other than the patient for history (EMS, parent, family, police, friend...)? What history was obtained from this source @ -No Did you review nursing and triage notes (agree or disagree)? Why? @ -I reviewed and agree with nursing and triage notes Were old charts reviewed (outside hosp., previous admission, EMS record, old EKG, old radiological studies, urgent care reports/EKG's, alf records)? Report findings @ -I reviewed prior charts of her labwork on this patient Differential Diagnosis (chest pain, altered mental status, abdominal pain women, abdominal pain men, vaginal bleeding, weakness, fever, dyspnea, syncope, headache, dizziness, GI bleed, back pain, seizure, CVA, palpatations, mental health, musculoskeletal)? @ -Differential Abdominal Pain Men: Appendicitis, cholecystitis, diverticulosis, ischemic bowel, pancreatitis, hepatitis, UTI, gastroenteritis, AAA, incarcerated hernia, bowel obstruction, constipation, inflammatory bowel, hepatitis, peptic ulcer disease, splenic infarction, perforated viscus, testicular torsion, this is not meant to be an all-inclusive list EKG interpreted by me (3pts min.). @ -As above X-rays interpreted by me (1pt min.). @ -None done CT interpreted by me (1pt min.). @ -Computed tomography scan of the abdomen and pelvis shows a 2 mm stone at the UV junction with mild hydronephrosis U/S interpreted by me (1pt. min.). @ -None done What testing was considered but not performed or refused? (CT, X-rays, U/S, labs)? Why? @ -None What meds were considered but not given or refused? Why? @ -None Did you discuss the management of the patient with other professionals (katiuska cook i.e. , PA, STORAGE BRINE WORKER, lab, RT, psych nurse, social psychologist, director of medical education, teacher, surveillance dual rate officer, oil field caser)? Give summary @ -No Was smoking cessation discussed for >3mins.? @ -No Was critical care preformed (if so, how long)? @ -No Were there social determinants of health that impacted care today? How? (Homelessness, low income, unemployed, alcoholism, drug addiction, transpor tation, low edu. Level, literacy, decrease access to med. care, senior living, rehab)? @ -No Was there de-escalation of care discussed even if they declined (Discuss DNR or withdrawal of care, Hospice)? DNR status @ -No What co-morbidities impacted this encounter? (DM, HTN, Smoking, COPD, CAD, Cancer, CVA, ARF, Chemo, Hep., AIDS, mental health diagnosis, sleep apnea, morbid obesity)? @ -None Was patient admitted / discharged? Hospital course, mention meds given and route, prescriptions, significant lab abnormalities, going to OR and other pertinent info. @ -2 was given pain medications and when I went back into reevaluate the patient and inform them of his kidney stone patient had no pain. Undiagnosed new problem with uncertain prognosis? @ -No Drug Therapy requiring intensive monitoring for toxicity (Heparin, Nitro, Insulin, Cardizem)? @ -No Were any procedures done? @ -No Diagnosis/symptom? @ -Kidney stone Acute, or Chronic, or Acute on Chronic? @ -Acute Uncomplicated (without systemic symptoms) or Complicated (systemic symptoms)? @ -Complicated Side effects of treatment? @ -No Exacerbation, Progression, or Severe Exacerbation? @ -No Poses a threat to life or bodily function? How? (Chest pain, [place], [place], pneumonia, PE, COPD, DKA, ARF, appy, cholecystitis, CVA, Diverticulitis, Homicidal, Suicidal, threat to staff... and all critical care pts) @ -No - Lab Data Result diagrams: 07/29/23 10:03 07/29/23 10:03 Lab Results 07/29/23 07/29/23 07/29/23 Range/Units 10:03 10:03 10:03 WBC 13.1 H (3.8-10.6) k/uL RBC 4.52 (4.30-5.90) m/uL Hgb 14.7 (13.0-17.5) gm/dL Hct 44.1 (39.0-53.0) % MCV 97.5 (80.0-100.0) fL MCH 32.5 (25.0-35.0) pg MCHC 33.3 (31.0-37.0) g/dL RDW 12.7 (11.5-15.5) % Plt Count 200 (150-450) k/uL MPV 7.9 Neutrophils % 89 % Lymphocytes % 6 % Monocytes % 4 % Eosinophils % 0 % Basophils % 0 % Neutrophils # 11.6 H (1.3-7.7) k/uL Lymphocytes # 0.8 L (1.0-4.8) k/uL Monocytes # 0.5 (0-1.0) k/uL Eosinophils # 0.0 (0-0.7) k/uL Basophils # 0.0 (0-0.2) k/uL Sodium 139 (137-145) mmol/L Potassium 4.9 (3.5-5.1) mmol/L Chloride 103 (98-107) mmol/L Carbon Dioxide 20 L (22-30) mmol/L Anion Gap 16 mmol/L BUN 21 H (9-20) mg/dL Creatinine 1.33 H (0.66-1.25) mg/dL Est GFR (CKD-EPI)AfAm 62 (>60 ml/min/1.73 sqM) Est GFR (CKD-EPI)NonAf 54 (>60 ml/min/1.73 sqM) Glucose 177 H (74-99) mg/dL Calcium 10.0 (8.4-10.2) mg/dL Total Bilirubin 1.2 (0.2-1.3) mg/dL AST 28 (17-59) U/L ALT 19 (4-49) U/L Alkaline Phosphatase 52 (38-126) U/L Total Protein 8.1 (6.3-8.2) g/dL Albumin 4.5 (3.5-5.0) g/dL Urine Color Yellow Urine Appearance Clear (Clear) Urine pH 5.0 (5.0-8.0) Ur Specific [place] 1.024 (1.001-1.035) Urine Protein 1+ H (Negative) Urine Glucose (UA) Negative (Negative) Urine Ketones Negative (Negative) Urine Blood Small H (Negative) Urine Nitrite Negative (Negative) Urine Bilirubin Negative (Negative) Urine Urobilinogen <2.0 (<2.0) mg/dL Ur Leukocyte Esterase Negative (Negative) Urine RBC 3 (0-5) /hpf Urine WBC 2 (0-5) /hpf Ur Squamous Epith Cells <1 (0-4) /hpf Urine Mucus Rare H (None) /hpf Disposition Clinical Impression: Kidney stone Disposition: HOME SELF-CARE Condition: Good Instructions (If sedation given, give patient instructions): Kidney Stones (ED) Prescriptions: Tamsulosin [Flomax] 0.4 mg PO DAILY #10 cap Ketorolac [Toradol] 10 mg PO Q6HR #15 tab Ondansetron [Zofran] 4 mg PO Q8HR PRN #10 tab PRN Reason: Nausea And Vomiting Is patient prescribed a controlled substance at d/c from ED?: No Referrals: Dale Montenegro MD [Primary Care Provider] - 1-2 days Time of Disposition: 11:28
[2023-07-29 09:57] VITALS: TEMP 98.1
[2023-07-29 10:42] VITALS: RESP 18
[2023-07-29 10:54] LABS: Appearance,Urine Clear (Clear); Bilirubin,Urine Negative (Negative); Blood,Urine Small (Negative); Color,Urine Yellow; Glucose,Urine (UA) Negative (Negative); Ketones,Urine Negative (Negative); Leukocyte Esterase,Urine Negative (Negative); Mucus,Urine Rare /hpf; Nitrite,Urine Negative (Negative); Protein,Urine 1+ (Negative); RBC,Urine 3 /hpf (0-5); Specific Gravity,Urine 1.024 (1.001-1.035); Squamous Epithelial Cell,Urine <1 /hpf (0-4); Urobilinogen,Urine <2.0 mg/dL (<2.0); WBC,Urine 2 /hpf (0-5)
[2023-07-29 11:02] LABS: Basophils % (A) 0 %; Eosinophils % (A) 0 %; HCT 44.1 % (39.0-53.0); HGB 14.7 gm/dL (13.0-17.5); Lymphocytes # (A) 0.8 k/uL (1.0-4.8); Lymphocytes % (A) 6 %; MCH 32.5 pg (25.0-35.0); MCHC 33.3 g/dL (31.0-37.0); MCV 97.5 fL (80.0-100.0); Mean Platelet Volume 7.9; Monocytes # (A) 0.5 k/uL (0-1.0); Monocytes % (A) 4 %; Neutrophils # (A) 11.6 k/uL (1.3-7.7); Neutrophils % (A) 89 %; Platelet Count 200 k/uL (150-450); RBC 4.52 m/uL (4.30-5.90); RDW 12.7 % (11.5-15.5); WBC 13.1 k/uL (3.8-10.6)
--- NOTE | 2023-07-29 11:06 | CT ---
EXAMINATION TYPE: CT abdomen pelvis wo con CT DLP: 759.5 mGycm, Automated exposure control for dose reduction was used. DATE OF EXAM: 07/29/2023 10:35 AM COMPARISON: CT abdomen pelvis most recent from 02/10/2018 CLINICAL INDICATION:Male, 72 years old with history of abdominal pain; left flank pain TECHNIQUE: Axial CT of the ;CT abdomen pelvis wo con;Sagittal and coronal reformats were created on a separate workstation. Contrast used: mL of , (none if empty) Oral contrast used: without Oral Contrast (none if empty) FINDINGS: LOWER CHEST: Atherosclerosis of the coronary arteries. ABDOMEN LIVER: Unremarkable GALLBLADDER AND BILE DUCTS: Unremarkable. PANCREAS: Unremarkable. SPLEEN: Unremarkable. ADRENAL GLANDS: Unremarkable. KIDNEYS AND URETERS: Mild to moderate left hydronephrosis secondary obstructing 2 mm calculus at the ureteropelvic junction. Additional nonobstructing calculi bilaterally ro measuring up to 8 mm on the left and 16 mm in the right. There is adjacent fat stranding changes on the left kidney. Evidence of hydronephrosis or renal calculus. The ureters are unremarkable. PELVIS BLADDER: Unremarkable REPRODUCTIVE: Prostate is enlarged in size measuring 5.3 cm in transverse dimension. ABDOMEN & PELVIS STOMACH AND BOWEL: No evidence of bowel obstruction. PERITONEUM/RETROPERITONEUM: No evidence of pneumoperitoneum or free fluid. VASCULATURE: Moderate atherosclerotic calcifications are present throughout the abdominal aorta and i ts branches. No evidence of aortic aneurysm. MUSCULOSKELETAL: No acute osseous abnormalities. Moderate disc degeneration changes are present throu ghout the thoracolumbar spine. Pseudoarthrosis of the spinous processes. Scattered facet joint arthro lauren. LYMPH NODES: No gross evidence for lymphadenopathy. SOFT TISSUE/ABDOMINAL WALL: Fat-containing right inguinal hernia. Fat-containing umbilical hernia. IMPRESSION: 1. Mild to moderate left hydronephrosis secondary obstructing 2 mm calculus at the ureteropelvic sergio ction. Additional Nonobstructing bilateral renal calculi. 2. Prostatomegaly, correlate serum PSA. 3. 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 4. Severe coronary artery atherosclerosis.
[2023-07-29 11:16] LABS: ALT 19 U/L (4-49); AST 28 U/L (17-59); African American GFR (CKD) 62 (>60 ml/min/1.73 sqM); Albumin 4.5 g/dL (3.5-5.0); Alkaline Phosphatase 52 U/L (38-126); Anion Gap 16 mmol/L; Blood Urea Nitrogen 21 mg/dL (9-20); Carbon Dioxide 20 mmol/L (22-30); Chloride 103 mmol/L (98-107); Glucose 177 mg/dL (74-99); Non-African American GFR(CKD) 54 (>60 ml/min/1.73 sqM); Potassium 4.9 mmol/L (3.5-5.1); Sodium 139 mmol/L (137-145); Total Bilirubin 1.2 mg/dL (0.2-1.3); Total Protein 8.1 g/dL (6.3-8.2)
[2023-07-29 12:12] VITALS: BP 136/88; PULSE 78
== END 2023-07-29 12:01 | disposition home or self-care (01) ==
LOC: EC 09:30
DX: N13.2 Hydronephrosis with renal and ureteral calculous obstruction (principal); I25.10 Atherosclerotic heart disease of native coronary artery without angina pectoris; N40.0 Benign prostatic hyperplasia without lower urinary tract symptoms; E11.9 Type 2 diabetes mellitus without complications; I10 Essential (primary) hypertension; Z79.84 Long term (current) use of oral hypoglycemic drugs; Z79.899 Other long term (current) drug therapy; Z79.82 Long term (current) use of aspirin
CPT/HCPCS: 36415; 80053; 85025; 81001; 74176; 99285; 96374; 96375 ×2; 96361; J2405; J1885; J1170

== ENCOUNTER 2023-08-15 08:13 | Emergency (ER) | payer MEDICARE ==
[2023-08-15 08:26] VITALS: RESP 18
[2023-08-15 09:12] LABS: Basophils % (A) 0 %; Eosinophils # (A) 0.3 k/uL (0-0.7); Eosinophils % (A) 3 %; HCT 44.7 % (39.0-53.0); HGB 14.7 gm/dL (13.0-17.5); Lymphocytes # (A) 1.6 k/uL (1.0-4.8); Lymphocytes % (A) 20 %; MCH 31.6 pg (25.0-35.0); MCV 95.7 fL (80.0-100.0); Mean Platelet Volume 7.8; Monocytes # (A) 0.3 k/uL (0-1.0); Monocytes % (A) 4 %; Neutrophils # (A) 5.7 k/uL (1.3-7.7); Neutrophils % (A) 71 %; Platelet Count 329 k/uL (150-450); RBC 4.67 m/uL (4.30-5.90); RDW 12.4 % (11.5-15.5)
[2023-08-15 09:29] LABS: ALT 19 U/L (4-49); AST 31 U/L (17-59); African American GFR (CKD) 63 (>60 ml/min/1.73 sqM); Albumin 4.6 g/dL (3.5-5.0); Alkaline Phosphatase 63 U/L (38-126); Anion Gap 16 mmol/L; Blood Urea Nitrogen 29 mg/dL (9-20); Carbon Dioxide 19 mmol/L (22-30); Chloride 105 mmol/L (98-107); Glucose 127 mg/dL (74-99); Magnesium 1.7 mg/dL (1.6-2.3); Non-African American GFR(CKD) 55 (>60 ml/min/1.73 sqM); Potassium 4.3 mmol/L (3.5-5.1); Sodium 140 mmol/L (137-145); Total Bilirubin 0.7 mg/dL (0.2-1.3); Total Protein 8.5 g/dL (6.3-8.2)
--- NOTE | 2023-08-15 09:37 | ED ---
General Adult HPI - General Chief complaint: Urogenital Stated complaint: Kidney Stones Time Seen by Provider: 08/15/23 08:20 Source: patient Mode of arrival: ambulatory Limitations: no limitations - History of Present Illness Initial comments: Dictation was produced using [employer] dictation software. please excuse any grammatical, word or spelling errors. Chief Complaint: 72-year-old male told to come to the emergency department for acute kidney injury History of Present Illness: Patient is 72-year-old male he was instructed by his primary care doctor to come to the emergency department for evaluation of acute kidney injury. Patient was recently in the emergency department for kidney stones. States that since his last visit past total 5 kidney stones. He had blood work drawn: Days ago at his primary care physician's office. He was told last night that he should come to the ER for concerns of acute kidney injury. Patient otherwise has no complaints. He has no pain. The ROS documented in this emergency department record has been reviewed and confirmed by me. Those systems with pertinent positive or negative responses have been documented in the HPI. All other systems are other negative and/or noncontributory. - Related Data Home Medications Medication Instructions Recorded Confirmed Aspirin EC [Ecotrin Low Dose] 81 mg PO HS 02/11/18 03/05/20 Cholecalciferol [Vitamin D3] 2,000 unit PO Q48H 02/11/18 03/05/20 Metoprolol Tartrate [Lopressor] 25 mg PO BID 02/11/18 03/05/20 allopurinoL [Zyloprim] 300 mg PO HS 02/11/18 03/05/20 metFORMIN HCL [Glucophage] 1,000 mg PO BID 02/11/18 03/05/20 Co Q-10 (Unknown Strength) 1 tab PO HS 03/05/20 03/05/20 Previous Rx's Medication Instructions Recorded Tamsulosin [Flomax] 0.4 mg PO DAILY #30 cap 03/06/20 Ketorolac [Toradol] 10 mg PO Q6HR #15 tab 07/29/23 Ondansetron [Zofran] 4 mg PO Q8HR PRN #10 tab 07/29/23 Tamsulosin [Flomax] 0.4 mg PO DAILY #10 cap 07/29/23 Allergies Allergy/AdvReac Type Severity Reaction Status Date / Time No Known Allergies Allergy Verified 08/15/23 08:21 Review of Systems ROS Statement: Those systems with pertinent positive or pertinent negative responses have been documented in the HPI. ROS Other: All systems not noted in ROS Statement are negative. Past Medical History Past Medical History: Diabetes Mellitus, Hypertension Additional Past Medical History / Comment(s): kidney stones, gout History of Any Multi-Drug Resistant Organisms: None Reported Additional Past Surgical History / Comment(s): ureteroscopy with lithotripsy- right and two unsuccessful ESWL procedures-right Past Psychological History: No Psychological Hx Reported Smoking Status: Never smoker Past Alcohol Use History: None Reported Past Drug Use History: None Reported General Exam - General Exam Comments Initial Comments: PHYSICAL EXAM: General Impression: Alert and oriented x3, not in acute distress HEENT: Normocephalic atraumatic, extra-ocular movements intact, pupils equal and reactive to light bilaterally, mucous membranes moist. Cardiovascular: Heart regular rate and rhythm Chest: Able to complete full sentences, no retractions, no tachypnea Abdomen: abdomen soft, non-tender, non-distended, no organomegaly Musculoskeletal: Pulses present and equal in all extremities, no peripheral edema Motor: no focal deficits noted Neurological: CN II-XII grossly intact, no focal motor or sensory deficits noted Skin: Intact with no visualized rashes Psych: Normal affect and mood Limitations: no limitations Course Vital Signs 08/15/23 08/15/23 08:17 08:45 Temperature 98.7 F 97.9 F Pulse Rate 95 89 Respiratory 18 18 Rate Blood Pressure 156/89 149/97 O2 Sat by Pulse 97 97 Oximetry Medical Decision Making - Medical Decision Making Was pt. sent in by a medical professional or institution ([facility], CONSUMER ATTORNEY, urgent care, hospital, or [facility]...) When possible be specific @ -No Did you speak to anyone other than the patient for history (EMS, parent, family, police, friend...)? What history was obtained from this source @ -No Did you review nursing and triage notes (agree or disagree)? Why? @ -I reviewed and agree with nursing and triage notes Were old charts reviewed (outside hosp., previous admission, EMS record, old EKG, old radiological studies, urgent care reports/EKG's, [facility] records)? Report findings @ -No old charts were reviewed Differential Diagnosis (chest pain, altered mental status, abdominal pain women, abdominal pain men, vaginal bleeding, musculoskeletal, weakness, fever, dyspnea, syncope, headache, dizziness, GI bleed, back pain, seizure, CVA, palpatations, mental health)? @ -not applicable EKG interpreted by me (3pts min.). @ -None done X-rays interpreted by me (1pt min.). @ -None done CT interpreted by me (1pt min.). @ -None done U/S interpreted by me (1pt. min.). @ -None done What testing was considered but not performed or refused? (CT, X-rays, U/S, labs)? Why? @ -None What meds were considered but not given or refused? Why? @ -None Did you discuss the management of the patient with other professionals (professionals i.e. , PA, CONSUMER ATTORNEY, lab, RT, psych nurse, child protective services social worker, county tax assessor, teacher, community cultural development officer, case preparer and liner)? Give summary @ -No Was smoking cessation discussed for >3mins.? @ -No Was critical care preformed (if so, how long)? @ -No Were there social determinants of health that impacted care today? How? (Homelessness, low income, unemployed, alcoholism, drug addiction, transportation, low edu. Level, literacy, decrease access to med. care, alf, rehab)? @ -No Was there de-escalation of care discussed even if they declined (Discuss DNR or withdrawal of care, Hospice)? DNR status @ -No What co-morbidities impacted this encounter? (DM, HTN, Smoking, COPD, CAD, Cancer, CVA, ARF, Chemo, Hep., AIDS, mental health diagnosis, sleep apnea, morbid obesity)? @ -None Was patient admitted / discharged? Hospital course, mention meds given and route, prescriptions, significant lab abnormalities, going to OR and other pertinent info. @ -72-year-old male presents emergency department after instructed by his primary care doctor to come to the ER for acute kidney injury. Laboratory evaluation obtained. Patient's kidney function appears to be at his usual baseline. BUN is 29 creatinine is 1.31. Historically he is around his baseline if not improved since 2018. Undiagnosed new problem with uncertain prognosis? @ -No Drug Therapy requiring intensive monitoring for toxicity (Heparin, Nitro, Insu amrit, Cardizem)? @ -No Were any procedures done? @ -No Diagnosis/symptom? Acute, or Chronic, or Acute on Chronic? Uncomplicated (without systemic symptoms) or Complicated (systemic symptoms)? @ -Abnormal outpatient labs Side effects of treatment? @ -No Exacerbation, Progression, or Severe Exacerbation? @ -No Poses a threat to life or bodily function? How? (Chest pain, USA, IA, pneumonia, PE, COPD, DKA, ARF, appy, cholecystitis, CVA, Diverticulitis, Homicidal, Suicidal, threat to staff... and all critical care pts) @ -No - Lab Data Result diagrams: 08/15/23 08:49 08/15/23 08:49 Lab Results 08/15/23 08/15/23 Range/Units 08:49 08:49 WBC 8.0 (3.8-10.6) k/uL RBC 4.67 (4.30-5.90) m/uL Hgb 14.7 (13.0-17.5) gm/dL Hct 44.7 (39.0-53.0) % MCV 95.7 (80.0-100.0) fL MCH 31.6 (25.0-35.0) pg MCHC 33.0 (31.0-37.0) g/dL RDW 12.4 (11.5-15.5) % Plt Count 329 (150-450) k/uL MPV 7.8 Neutrophils % 71 % Lymphocytes % 20 % Monocytes % 4 % Eosinophils % 3 % Basophils % 0 % Neutrophils # 5.7 (1.3-7.7) k/uL Lymphocytes # 1.6 (1.0-4.8) k/uL Monocytes # 0.3 (0-1.0) k/uL Eosinophils # 0.3 (0-0.7) k/uL Basophils # 0.0 (0-0.2) k/uL Sodium 140 (137-145) mmol/L Potassium 4.3 (3.5-5.1) mmol/L Chloride 105 (98-107) mmol/L Carbon Dioxide 19 L (22-30) mmol/L Anion Gap 16 mmol/L BUN 29 H (9-20) mg/dL Creatinine 1.31 H (0.66-1.25) mg/dL Est GFR (CKD-EPI)AfAm 63 (>60 ml/min/1.73 sqM) Est GFR (CKD-EPI)NonAf 55 (>60 ml/min/1.73 sqM) Glucose 127 H (74-99) mg/dL Calcium 10.0 (8.4-10.2) mg/dL Magnesium 1.7 (1.6-2.3) mg/dL Total Bilirubin 0.7 (0.2-1.3) mg/dL AST 31 (17-59) U/L ALT 19 (4-49) U/L Alkaline Phosphatase 63 (38-126) U/L Total Protein 8.5 H (6.3-8.2) g/dL Albumin 4.6 (3.5-5.0) g/dL Disposition Clinical Impression: Elevated serum creatinine Disposition: HOME SELF-CARE Condition: Good Instructions (If sedation given, give patient instructions): Acute Kidney In jury (DC) Is patient prescribed a controlled substance at d/c from ED?: No Referrals: Alma Moura DO [Primary Care Provider] - 1-2 days Time of Disposition: 10:15
[2023-08-15 10:22] VITALS: BP 138/87; PULSE 73; TEMP 98.2
== END 2023-08-15 10:40 | disposition home or self-care (01) ==
LOC: EC 08:13
DX: R79.89 Other specified abnormal findings of blood chemistry (principal); E11.9 Type 2 diabetes mellitus without complications; I10 Essential (primary) hypertension; Z79.84 Long term (current) use of oral hypoglycemic drugs; Z79.82 Long term (current) use of aspirin; Z79.899 Other long term (current) drug therapy
CPT/HCPCS: 36415; 80053; 83735; 85025; 99283